=== PATIENT | female | born 1985 | race Caucasian/White ===

== ENCOUNTER 2025-04-10 22:25 | Emergency (ER) | payer OTHER, SELFPAY ==
[2025-04-10 22:29] VITALS: BP 134/80; PULSE 82; RESP 17; TEMP 36.8; O2SAT 98; BMI 28.7
--- NOTE | 2025-04-10 23:21 | XR_ITS ---
Examination: Pelvic ultrasound, transabdominal, complete Technique: Transabdominal ultrasound of the pelvis performed using grayscale imaging Date and time of exam: April 10, 2025 1147 hours INDICATIONS: Pelvic pain beginning 8:00 PM this evening FINDINGS: Absent uterus Right ovary 4.3 cm arterial flow 19 mm follicular cyst Left ovary 2.0 cm arterial flow IMPRESSION: Negative study
--- NOTE | 2025-04-10 23:21 | XR_ITS ---
Examination: CT abdomen and pelvis without contrast. Coronal 3-D reconstructions. Sagittal 2-D reconstructions. Date and time of exam: 2024:14 p.m. INDICATIONS: Onset of abdominal pain today CTDI: vol (mGy): 8.15 DLP: (mGycm): 180 Technique: Axial images of the abdomen have been obtained, 3 mm slice thickness Intravenous contrast material has not been administered. Low dose protocols were performed. One or more of the following dose reduction techniques were used; automated exposure control, adjustment of the mA and/or KV according to patient size, use of iterative reconstruction technique. Findings: Significant diffuse fatty infiltration throughout the liver with mild hepatomegaly Absent gallbladder No pancreatic mass, right renal calculi, the largest 4 mm Mild right hydronephrosis but no ureteral calculi, no bladder calculi No bowel obstruction Normal appendix No prostatomegaly. Impression : Mild right hydronephrosis, consider right urinary tract infection, recent passage of a right ureteral calculus
[2025-04-11 00:55] LABS: Basophils # (Auto) 0.1 Thou/mm3 (0.0-0.2); Basophils % (Auto) 1 % (0-2.5); Eosinophils # (Auto) 0.1 Thou/mm3 (0.0-0.5); Eosinophils % (Auto) 1 % (0-10); Hematocrit 35.1 % (36.0-46.0); Hemoglobin 11.1 g/dL (12.0-16.0); Immature Granulocytes Auto 0.08 Thou/mm3 (0.00-0.00); Lymphocytes # (Auto) 2.4 Thou/mm3 (1.0-4.8); Lymphocytes % (Auto) 22 % (10-50); Mean Corpuscular HGB Conc 31.6 g/dl (31.0-37.0); Mean Corpuscular Hemoglobin 27.3 pg (25.0-35.0); Mean Corpuscular Volume 87 fL (80-100); Monocytes # (Auto) 0.6 Thou/mm3 (0.0-0.8); Monocytes % (Auto) 6 % (0-12); Neutrophils # (Auto) 7.6 Thou/mm3 (1.8-7.7); Neutrophils % (Auto) 70 % (37-80); Nucleated Red Blood Cell # 0.00 Thou/mm3 (0.00-0.00); Nucleated Red Blood Cell % 0 /100 WBC (0); Platelet Count 365 Thou/mm3 (140-440); RDW Standard Deviation 50.0 fL (36.4-46.3); Red Blood Count 4.06 Miln/mm3 (4.00-5.20); White Blood Count 10.8 Thou/mm3 (3.6-11.0)
[2025-04-11 01:03] LABS: Alanine Aminotransferase 64 U/L (10-49); Albumin, Serum 4.8 gm/dL (3.5-5.0); Anion Gap 12 (7-16); Aspartate Amino Transferase 49 U/L (0-34); BUN/Creatinine Ratio 13 Ratio (12-20); Bilirubin,Total 0.4 mg/dL (0.3-1.2); Blood Urea Nitrogen 9 mg/dL (9-23); Calcium 9.8 mg/dL (8.3-10.6); Calcium (Corrected) 9.8 mg/dL (8.5-10.1); Carbon Dioxide 23.4 mMol/L (20.0-31.0); Chloride 105 mMol/L (98-107); Creatinine (Component) 0.7 mg/dL (0.6-1.3); Estimated Creatinine Clearance 115.6 mL/min (>60); Globulin 2.7 gm/dL (2.3-3.5); Glucose 107 mg/dL (74-106); Osmolality,Calculated 278 (275-295); Potassium 3.8 mMol/L (3.4-5.1); Sodium 140 mMol/L (136-145); Total Protein 7.5 gm/dL (5.7-8.2); eGFR > 60 See Note
[2025-04-11 01:04] LABS: Albumin/Globulin Ratio 1.8 (1.2-2.2); Alkaline Phosphatase 79 U/L (46-116); Lipase 33 U/L (12-53)
--- NOTE | 2025-04-11 01:14 | PRELIM_ITS ---
Pelvic ultrasound (transabdominal). April 10, 2025 2347 hours Clinical history: Right pelvic pain. Rule out torsion. Technique: Real-time, grayscale, transabdominal pelvic ultrasound was performed using Duplex scanning including arterial inflow, venous outflow, color and spectral Doppler. Correlated with CT abdomen and pelvis performed on the same day. Findings: The uterus is surgically absent. The right ovary measures 4.3 x 2.4 x 3.3 cm and demonstrates a dominant follicle measuring 1.9 x 1.7 x 1.2 cm. The left ovary measures 2 x 1.2 x 1.2 cm and is unremarkable. Both ovaries demonstrate color flow and spectral waveforms on Doppler evaluation. There is no adnexal mass. There is no free fluid on the submitted images. Impression: No sonographic evidence of ovarian torsion is demonstrated on the submitted images. Other findings as described above. Please also refer to report of CT abdomen and pelvis. Report Electronically Signed By: José Miguel Soto 04/11/2025 1:13:31 AM [EST]
--- NOTE | 2025-04-11 01:16 | PRELIM_ITS ---
CT scan of the abdomen and pelvis without intravenous contrast (axial sections with sagittal and coronal reformats). 3D reconstructed images were also provided. April 11, 2025 0014 hours. Clinical History: Right flank pain. Correlated with ultrasound pelvis study performed on the same day. Findings: There is mild right hydroureteronephrosis and periureteric/perinephric fat stranding. 2-3 mm nonobstructing right renal calculi are seen. The left renal pyramids are slightly hyperdense. There is a 1-2 mm nonobstructing calculus in the lower pole calyx of the left kidney. No ureteric calculus. Mild hepatomegaly with diffuse fatty infiltration of the liver is noted. The gallbladder is surgically absent. No biliary duct dilatation or obstruction. The pancreas, spleen and adrenals are unremarkable on this noncontrast study. No evidence of bowel obstruction. The appendix is within normal limits. There are occasional colonic diverticula without evidence of diverticulitis. No evidence of abdominal aortic aneurysm. There is no significant mesenteric or retroperitoneal adenopathy. The urinary bladder is incompletely distended at the time of the examination, limiting the evaluation. The uterus is surgically absent. There is a dominant follicle in the right ovary, measuring 2 cm. There is no free fluid or free air. A small umbilical hernia is seen containing fat without incarceration. Perineural cysts are seen in the sacral canal at S2-S3 level. The lung bases are clear. Please note that evaluation of soft tissue/vascular structures and bowel loops is limited due to absence of IV and oral contrast. Impression: 1. Mild right hydroureteronephrosis as described, possibly due to a recently passed ureteric calculus versus pyeloureteritis. 2. Nonobstructing bilateral renal calculi as described. No ureteric calculus. 3. Mild hepatomegaly with diffuse fatty infiltration of the liver. 4. Other findings as described above. Suggest clinical correlation and follow up accordingly. Report Electronically Signed By: José Miguel Soto 04/11/2025 1:15:39 AM [EST]
[2025-04-11 02:18] LABS: Collection Type, Urine Clean Catch
[2025-04-11 02:55] LABS: Bacteria,Urine 1+; Bilirubin,Urine Negative (Negative); Blood,Urine 2+ (Negative); Calcium Oxalate Crystals,Urine Rare; Clarity,Urine Clear (Clear/Hazy); Color,Urine Lt-Yellow (Lt Yel-Yel); Glucose, Urine Negative (Negative); Ketones,Urine 1+ (Negative); Leukocyte Esterase,Urine Negative (Negative); Nitrite,Urine Negative (Negative); PH,Urine 6.5 (5.0-7.0); Protein,Urine Trace (Neg - Trace); RBC,Urine 90 /hpf (0-3); Specific Gravity,Urine 1.017 (1.001-1.035); Squamous Epithelial Cell,Urine < 1 /hpf (0-5); Urobilinogen,Urine Negative mg/dL (0.0-1.0); WBC,Urine 2 /hpf (0-5)
[2025-04-11 02:57] LABS: Culture Indicated,Urine Yes
--- NOTE | 2025-04-11 03:22 | PD.EDBACK ---
ED Back Injury Pain RME/HPI General Chief Complaint: Abdominal Pain Stated Complaint: LOW R ABD PAIN Time Seen by Provider: 04/10/25 23:20 Arrival date/time: 04/10/25 22:25 40F with history of cholecystectomy and hysterectomy presents to ED with 1 day of sudden R flank pain that radiates towards groin, as well as some N/V. Patient denies dysuria. Patient states pain is getting better, but still here. Limitations: no limitations Related Data Allergies Allergy/AdvReac Type Severity Reaction Status Date / Time amoxicillin Allergy Verified 04/10/25 22:35 Review of Systems Review of Systems Systems Reviewed: All systems reviewed, normal except as documented Constitutional Constitutional: Reports system reviewed and no additional complaints, except as documented, Denies fever(s) and Denies headache(s) ENT Ears, Nose, Mouth, and Throat: Denies disequilibrium and Denies headache(s) Cardiovascular Cardiovascular: Reports system reviewed and no additional complaints, except as documented, Denies chest pain and Denies dyspnea Respiratory Respiratory: Reports system reviewed and no additional complaints, except as documented, Denies cough and Denies dyspnea Gastrointestinal Gastrointestinal: Reports system reviewed and no additional complaints, except as documented, Reports as per HPI, Reports abdominal pain, Reports nausea and Reports vomiting Genitourinary Genitourinary: Reports as per HPI and Reports flank pain Neurologic Neurologic: Reports system reviewed and no additional complaints, except as documented, Denies confusion, Denies disequilibrium and Denies headache(s) Psychiatric Psychiatric: Denies confusion Past Medical History Social History SMOKING STATUS: Never smoker ED Exam General Limitations: Present no limitations General appearance: Present alert and in no apparent distress Head Head exam: Present atraumatic Eye Eye exam: Present normal appearance, PERRL and EOMI ENT ENT exam: Present normal exam, normal oropharynx and mucous membranes moist Neck Neck exam: Present normal inspection, full ROM and trachea midline Chest Chest inspection: Present normal inspection and symmetric chest wall rise Respiratory Respiratory exam: Present normal lung sounds bilaterally Cardiovascular Cardiovascular exam: Present regular rate, normal rhythm and normal heart sounds Abdominal Exam Abdominal exam: Present soft and normal bowel sounds Extremities Exam Extremities exam: Present normal inspection and full ROM Back Exam Back exam: Present normal inspection and full ROM Neurological Exam Neurological exam: Present alert, oriented X3 and CN II-XII intact Psychiatric Psychiatric exam: Present normal affect and normal mood Skin Skin exam: Present warm, dry, intact and normal color Course Quality Measures none Orders Category Date Time Status CT abdomen pelvis wo con Stat Exams 04/10/25 23:21 Taken US pelvic complete Stat Exams 04/10/25 23:21 Taken CBC Stat Lab 04/10/25 00:28 Completed CMP [Comprehensive Metabolic Panel] Stat Lab 04/10/25 00:28 Completed Lipase Stat Lab 04/10/25 00:28 Completed Urinalysis, C/S if Indicated Stat Lab 04/11/25 02:15 Completed Urine Culture Stat Lab 04/11/25 02:15 Received Vital Signs Vital signs: Vital Signs Temperature 98.2 F 04/10/25 22:29 Pulse Rate 82 04/10/25 22:29 Respiratory Rate 17 04/10/25 22:29 Blood Pressure 134/80 H 04/10/25 22:29 Pulse Oximetry (%) 98 04/10/25 22:29 Oxygen Delivery Method Room Air 04/10/25 22:29 O2 at 98% on RA and WNLs Back Pain / Injury MDM Narrative MDM Narrative:: 40F with history of cholecystectomy and hysterectomy presents to ED with 1 day of sudden R flank pain that radiates towards groin, as well as some N/V. Patient denies dysuria. Patient states pain is getting better, but still here. Physical exam reveals no ab tenderness. Patient is afebrile, calm, and alert. CT reveals mild R hydronephrosis likely from recently passed stone or pyelo. US no torsion. However, UA clean and patient denies dysuria, so the former is more likely. No leukocytosis. CMP unremarkable. Sewage Reticulation Drafting Officer given. Patient data External records reviewed:: None Clinical information provided by:: patient Social determinants that could affect healthcare access:: none Patient has the following chronic illnesses:: none How is presenting disease/condition affected by chronic disease/condition?: no chronic disease Evaluation data The following diagnostics were reviewed and interpreted by me:: lab results and radiology exam(s) Lab and/or radiology exams considered but not ordered:: ordered Interpretation Summary: above Medications / Prescriptions Medications or Prescriptions considered but not ordered:: not ordered Medication administrations:: n/a Consultations Consultation(s) initiated? (list below): No Diagnosis Differential diagnosis back pain/injury: lumbar radiculopathy, sciatica, strain of lumbar region, renal colic, pyelonephritis, thoracic back pain, AAA and discitis Most likely diagnosis given after review of the tests above:: renal colic Admission Indicated Admission indicated?: not indicated Admission Request Was there a request for admission?: No Disposition Plan Disposition Plan: Discharge Discharge Attestation Discharge Attestation: The patient and all family members were given an opportunity to ask questions and understood the discharge instructions. Discharge instructions specifically effects, indications for sooner follow up or return to the emergency department, and the expected course of current diagnosis. Patient condition: Stable Discharge Plan Plan Patient Disposition: HOME (Self Care) Discharge Disposition comment: Stable Prescriptions/Referrals Referrals: French Judd MD [Primary Care Provider] - In 1 week Problem List Clinical Impression: Renal colic on right side Patient/Caregiver Discharge Instructions Education Materials: ED Kidney Stone w/ Colic Additional Instructions: Please follow-up with PCP within 24-48 hours and return immediately if symptoms worsen. NSAIDs like ibuprofen tend to work better for this type of pain. Print Language: Angolan Stand Alone Forms: Patient Portal Info Letter VIKKI/CHAD Supervising Physician MUSA Supervising Physician: Dr. Agarwal
== END 2025-04-11 03:15 | disposition home or self-care (01) ==
PROVIDERS: Physician Assistant; Emergency Provider Emergency Medicine; PCP Internal Medicine
DX: N13.2 Hydronephrosis with renal and ureteral calculous obstruction (principal); K76.0 Fatty (change of) liver, not elsewhere classified
CPT/HCPCS: 36415; 74176; 76856; 80053; 81001; 83690; 85025; 87086; 99283